=== PATIENT | female | born 1935 | race Caucasian/White ===

== ENCOUNTER 2019-03-07 12:08 | Inpatient (IN) ==
[2019-03-07] MEDS ORDERED: NS 1,000 ML IV ONE ×2 (12:43→15:39)
[2019-03-07 13:22] LABS: BASO# 0.03 X1000 (0.0-0.2); BASO% 0.3 % (0.0-0.8); EOS# 0.17 X1000 (0.0-0.7); EOS% 1.5 % (0.0-10.0); HEMATOCRIT 43.9 % (37.0-47.0); HEMOGLOBIN 14.3 g/dL (12.0-16.0); IMM GRAN# 0.02 X1000 (0.0-0.04); IMM GRAN% 0.2 % (0.0-0.5); LYMPH# 1.19 X1000 (1.2-3.4); LYMPH% 10.6 % (20.5-51.1); MCH 29.6 PG (27-31); MCHC 32.6 g/dL (33-37); MCV 90.9 FL (81-99); MONO# 0.98 X1000 (0.11-0.59); MONO% 8.8 % (1.7-9.3); NEUT# 8.79 X1000 (1.4-6.5); NEUT% 78.6 % (42.2-75.2); PLT 327 X1000 (130-400); RBC 4.83 XMIL (4.2-5.4); RDW 15.3 % (11.5-14.5); WBC 11.18 X1000 (4.8-10.8)
[2019-03-07 13:23] LABS: AGAP 10; ALB/GLOB RATIO 1.1; ALBUMIN 3.5 g/dL (3.5-5.0); ALKALINE PHOSPHATASE 92 U/L (32-104); BUN 13 mg/dL (8-22); CALCIUM 9.4 mg/dL (8.8-10.2); CHLORIDE 97 mmol/L (98-107); COSMO 273; CREATININE 0.5 mg/dL (0.5-0.9); ESTIMATED GFR > 60; GLUCOSE 113 mg/dL (70-104); GOT 22 U/L (10-30); GPT 19 U/L (10-36); MAGNESIUM 2.1 mg/dL (1.5-2.7); POTASSIUM 4.3 mmol/L (3.5-5.1); SODIUM 136 mmol/L (136-145); TCO2 29 mmol/L (25-35); TOTAL BILIRUBIN 0.42 mg/dL (0.20-1.00); TOTAL PROTEIN 6.6 g/dL (6.3-8.3)
[2019-03-07 13:42] LABS: BILIRUBIN URINE NEGATIVE (NEGATIVE); BLOOD URINE NEGATIVE (NEGATIVE); COLOR YELLOW; GLUCOSE URINE NEGATIVE (NEGATIVE); KETONE URINE NEGATIVE (NEGATIVE); LEUKOCYTES URINE NEGATIVE (NEGATIVE); NITRITE URINE NEGATIVE (NEGATIVE); PH URINE 6.5; PROTEIN URINE NEGATIVE (NEGATIVE); TURBIDITY URINE CLEAR (CLEAR); URINE SOURCE CATH; UROBILINOGEN URINE NORMAL (NORMAL)
[2019-03-07 13:44] LABS: UR EPITHELIAL CELLS >10 /HPF (<10); URINE BACTERIA NEGATIVE /HPF; URINE RBC <10 /HPF (<10); URINE WBC <10 /HPF (<10)
--- NOTE | 2019-03-07 14:29 | Diag Imaging Result Doc PS360 ---
EXAM: CT ABD/PELVIS W/IV CONT ONLY 03/07/2019 HISTORY: abd pain TECHNIQUE: This exam was performed using automated exposure control, adjustment of mA or kV according to patient size, and/or use of iterative reconstruction technique. COMMENT: There are no previous studies available for comparison. There is some atelectasis or fibrosis particularly in the left posterior costophrenic sulcus. There is fluid in the distal esophagus and there is a fairly large hiatal hernia. The aorta is not distended. There are calcifications in the aorta. There are granulomata in the spleen. The adrenal glands and pancreas are within normal limits. There are no apparent gallstones. There is stool throughout the colon. The liver is unremarkable. There is no evidence of significant adenopathy. The kidneys are without evidence of hydronephrosis or mass. Pelvis: There is a large amount of stool in the rectum. There is presacral edema. The possibility of mild stercoral proctitis cannot be excluded. The urinary bladder is not distended. There are two ovarian cysts one of which measures up to 3.8 cm in size. There is a bone island in the left ischium. There are degenerative disc and facet changes in the lumbar spine. There has been kyphoplasty at T10. IMPRESSION: Constipation. Bibasilar atelectasis. Hiatal hernia. Probable reflux. Left ovarian cyst. Fecal impaction and mild proctitis. Electronically signed by Bharath Soto 03/07/2019 2:27 PM
--- NOTE | 2019-03-07 15:12 | PROVIDER DOCUMENTATION ---
This chart was entered by Mily Aly Scribe, acting as scribe for Jose Mc CRNP. HPI-Abdominal Pain/GI Problem - General Chief Complaint: GI Bleed Stated Complaint: GI BLEED Time Seen by Provider: 03/07/19 12:25 Source: patient, EMS, other (home caregiver) Allergies/Adverse Reactions: Patient Allergies Allergy/AdvReac Type Severity Reaction Status Date / Time Penicillins AdvReac Unknown Verified 02/13/19 22:23 Home Medications: Home Medication List Medication Instructions Recorded Confirmed Last Taken Type Multivitamins/Minerals [Centrum 1 each PO QAM 03/08/16 03/07/19 03/08/16 20:00 History Silver] Duloxetine [Cymbalta] 20 mg PO BID 09/18/18 03/07/19 Unknown History Levothyroxine Sodium 50 mcg PO QPM 09/18/18 03/07/19 Unknown History ATORVAstatin [Lipitor] 40 mg PO QPM 02/13/19 03/07/19 Unknown History Amlodipine Besylate 1 tab PO QPM 02/13/19 03/07/19 Unknown History Baclofen 1 tab PO BID 02/13/19 03/07/19 Unknown History Carvedilol [Coreg] 1 tab PO BID 02/13/19 03/07/19 Unknown History Docusate Sodium [Colace] 1 cap PO BID 02/13/19 03/07/19 Unknown History Gabapentin 1 cap PO TID 02/13/19 03/07/19 Unknown History LISINOpril [Prinivil] 5 mg PO QAM 02/13/19 03/07/19 Unknown History Levocetirizine Dihydrochloride 1 tab PO QHS 02/13/19 03/07/19 Unknown History Methocarbamol 1 tab PO BID 02/13/19 03/07/19 Unknown History Omeprazole 1 cap PO QAM 02/13/19 03/07/19 Unknown History Ranitidine [Zantac] 1 tab PO DAILY 02/13/19 03/07/19 Unknown History Tramadol [Ultram] 25 mg PO 4XDAY 02/13/19 03/07/19 Unknown History Apixaban [Eliquis] 2.5 mg PO BID #60 tab 02/16/19 03/07/19 Unknown Rx Aspirin EC 81 mg PO DAILY #30 tab 02/16/19 03/07/19 Unknown Rx Magnesium Oxide [Uro-Mag] 1 cap PO DAILY 03/07/19 03/07/19 Unknown History - History of Present Illness-ABD Nature of Presenting Problems: 83 y/o female presents to the ED via EMS with rectal pain and rectal bleeding. EMS states the caregiver called them due to rectal bleeding noted after enema. The patient is confused but does complaint of rectal pain and gives a history of stroke and there is obvious right-sided paresthesias. Abdominal Pain Onset Location: reports: other (anal) Onset/Duration: reports: 1 hour ago Timing: reports: still present Activities at Onset: reports: light activity Modifying Factors: improves with: nothing Associated Symptoms: reports: constipation, other Dark Stools Present?: reports: bright red blood Rectal Bleeding: reports: bleeding without stool Rectal Pain: reports: other (unknown cause) Emesis Description: reports: none Similar Symptoms Previously?: No Recently seen or treated by another doctor?: No Review of Systems - Adult - REVIEW OF SYSTEMS - ADULT Constitutional: denies: chills, fever, weight gain, weight loss Eyes: reports: no symptoms reported Ears, Nose, Mouth & Throat: reports: no symptoms reported Cardiovascular: reports: no symptoms reported Respiratory: reports: no symptoms reported Gastrointestinal: reports: constipation, rectal bleeding, other (rectal pain). denies: vomiting Genitourinary: denies: dysuria, discharge, hematuria Musculoskeletal: reports: no symptoms reported Integumentary: reports: no symptoms reported Neurological: reports: no symptoms reported Psychiatric: reports: no symptoms reported Endocrine: reports: no symptoms reported Hematologic/Lymphatic: reports: no symptoms reported Allergic/Immunologic: reports: no symptoms reported All Other Systems: Reviewed and Negative Past History - Adult - PAST MEDICAL HISTORY-ADULT Review of Records: reports: Old Records Reviewed, Nursing Assessment Review, Medications Reviewed Major Childhood Illnesses: reports: denies history Cardiovascular: reports: blood clots Respiratory: reports: denies history Gastrointestinal: reports: denies history Obstetrical/Gynecological: reports: denies history Genitourinary: reports: denies history Musculoskeletal: reports: arthritis Neurological: reports: denies history Endocrine/Immune: reports: denies history Other Conditions: reports: denies history - PRIOR SURGERIES/PROCEDURES Surgical/Procedure History: reports: hysterectomy, orthopedic (extremity), breast - IMMUNIZATION STATUS Childhood Immunizations: UTD Flu Vaccine: UTD - FAMILY HISTORY Family History: reviewed, not pertinent - SOCIAL HISTORY Smoking: non-smoker Substance Use: none/never Living Situation: other (home w/caregivers) Physical Exam-General - PHYSICAL EXAM-ADULT Initial Vital Signs Reviewed: Yes - CONSTITUTIONAL General Appearance: alert - HEAD, EARS, NOSE, MOUTH & THROAT HENMT: normocephalic/atraumatic - NECK Neck: full range of motion, supple - RESPIRATORY Respiratory: lungs clear. negative: rales, rhonchi, wheezing - CARDIOVASCULAR Cardiovascular: regular rate, rhythm, no gallop, no murmur - GASTROINTESTINAL (ABDOMEN) Abdominal Exam: non tender, soft. negative: guarding, rebound - GENITOURINARY Rectal Exam: other (bleeding present, impacted) - MUSCULOSKELETAL Extremity: other (right sided paresthesias RUE and RLE due to previous stroke). negative: tenderness - SKIN Integumentary: normal color, warm/dry. negative: diaphoresis - NEUROLOGIC Neurologic: other (right sided paresthesias due to previous stroke) - PSYCHIATRIC Psych/Mental Status: other (mildly confused) Progress - PLAN OF CARE/RESULTS Progress/Plan/Lab Results: According to the patient's caregiver the patient has also had a cough for approximately two weeks. Hemocult was also found to be positive. Will consult hospitalist for admission. Result Diagrams: 03/07/19 12:37 03/07/19 12:37 - CT/MRI 1 CT Study: Abdomen, Pelvis Impression: See EMR Report (EXAM: CT ABD/PELVIS W/IV CONT ONLY 03/07/2019 HISTORY: abd pain TECHNIQUE: This exam was performed using automated exposure control, adjustment of mA or kV according to patient size, and/or use of iterative reconstruction technique. COMMENT: There are no previous studies available for comparison. There is some atelectasis or fibrosis particularly in the left posterior costophrenic sulcus. There is fluid in the distal esophagus and there is a fairly large hiatal hernia. The aorta is not distended. There are calcifications in the aorta. There are granulomata in the spleen. The adrenal glands and pancreas are within normal limits. There are no apparent gallstones. There is stool throughout the colon. The liver is unremarkable. There is no evidence of significant adenopathy. The kidneys are without evidence of hydronephrosis or mass. Pelvis: There is a large amount of stool in the rectum. There is presacral edema. The possibility of mild stercoral proctitis cannot be excluded. The urinary bladder is not distended. There are two ovarian cysts one of which measures up to 3.8 cm in size. There is a bone island in the left ischium. There are degenerative disc and facet changes in the lumbar spine. There has been kyphoplasty at T10. IMPRESSION: Constipation. Bibasilar atelectasis. Hiatal hernia. Probable reflux. Left ovarian cyst. Fecal impaction and mild proctitis. Electronically signed by Bharath Soto 03/07/2019 2:27 PM) - CONSULTS/PCP/HOSPITALIST Notification #1 *Consult/PCP/Hospitalist*: P[facility]an Hospitalist Time Discussed: 14:30 Reason/Comments: possible pneumonia, proctitis, fecal impaction Consult Disposition: Admit (to [facility]) Departure - Departure Date of Disposition Decision: 03/07/19 Time of Disposition Decision: 14:38 DIAGNOSIS: Fecal impaction Pneumonia Qualifiers: Pneumonia type: due to unspecified organism Laterality: unspecified laterality Lung location: unspecified part of lung Qualified Code(s): J18.9 - Pneumonia, unspecified organism Disposition: ADMITTED INPATIENT 09 Certified Medical Emergency: Emergent Condition: Stable Additional Freetext Instructions: ED Follow Up Instructions: You have been treated by a care provider in the Emergency Department. These instructions are being provided to you so you can have an understanding of how to care for yourself upon discharge. Upon discharge from the Emergency Department, you are responsible for making arrangements for follow-up care by a physician of your choice. Take all prescribed medications as directed. Return to the Emergency Department immediately for any new or worsening symptoms. You may call the Physician Referral phone number at [phone] to obtain a list of Physicians who are taking new patients. Referrals and Follow-Ups: Jomar Canela MD [Primary Care Provider] - - Critical Care Note This patient required my direct & personal management of CC.: No Attestation - Physician/ MARIO Attestation Patient care was provided by Advanced Practice Provider:: Yes Advanced Practice Provider:: Jose Mc Advanced Practice Provider documentation review:: The Mid-level provider documentation, treatment plan and medical decision making was reviewed by the physician who agrees with all treatment and medical decision making by the MLP. The physician spent face to face time with patient:: No Advanced Practice Provider documentation review:: Supervising physician onsite and consulted in the evaluation and care of this patient. The physician did not have a face to face encounter with the patient. This chart was documented by the indicated scribe, (Mily Aly, Shruthi) and accurately reflects the services I performed and decisions made by , Jose Mc CRNP, as attested by the provider's signature.
[2019-03-07] MEDS ORDERED: DUONEB (A & A) INH PRN (15:35)
[2019-03-07] MEDS ORDERED: FLEET MINERAL OIL ENEMA PR ONE (15:39)
--- NOTE | 2019-03-07 16:08 | Diag Imaging Result Doc PS360 ---
EXAM: CHEST-PORTABLE 03/07/2019 HISTORY: cough, yellow sputum production TECHNIQUE: AP portable at 1542 COMMENT: There are patchy ill-defined opacities present bilaterally particularly in the right upper lobe. This was not present on 09/18/2018. The left ventricle is enlarged. The inspiration is somewhat suboptimal. IMPRESSION: Bronchopneumonia. Cardiomegaly. Electronically signed by Bharath Soto 03/07/2019 4:06 PM
[2019-03-07 16:10] LABS: INR 1.04; PROTIME 14.4 Seconds (11.0-16.0)
--- NOTE | 2019-03-07 16:48 | HISTORY AND PHYSICAL ---
PRIMARY CARE PHYSICIAN: Dr. Jomar Canela CHIEF COMPLAINT: Rectal bleeding. HISTORY OF PRESENT ILLNESS: Ms. Bowman is an 83-year-old female with a history of cerebrovascular accident with right-sided hemiparesis. She also has a history of coronary disease, status post stenting on anticoagulant therapy. She was actually discharged from our service around 10 days ago for transient ischemic attack. She comes in today in the company of her certified marine mechanic with complaints of rectal bleeding. She has had constipation for the better part of this week and only to pass small amounts of stool and also having difficulty with straining. Today, she was trying to have a bowel movement; and there was a stream of dark blood noted into the toilet. At that time the certified marine mechanic felt the patient should come to the ER. She has also had a cough with yellow-green sputum production and a low-grade temperature. She denies any chest pain, no abdominal pain or distention. Given the above, we are going to admit her for observation status. PAST MEDICAL HISTORY: 1. Recent admission for TIA. 2. History of CVA and right-sided hemiplegia. 3. CAD, status post coronary stenting. 4. Hypertension. 5. Hyperlipidemia. 6. Hypothyroidism. 7. Anxiety and depression. 8. GERD. SURGICAL HISTORY: Kyphoplasty, right foot surgery, breast biopsy, hysterectomy, tonsillectomy, appendectomy. SOCIAL HISTORY: No tobacco, alcohol or drug use. She lives at home with home health and 24-hour nursing manager. FAMILY HISTORY: Significant for cardiovascular disease. REVIEW OF SYSTEMS: A 14-point review of systems was obtained and found to be negative with the exception of the HPI. ALLERGIES: Penicillin. HOME MEDICATIONS: Norvasc 5 mg daily; Baclofen 10 mg b.i.d.; multivitamin 1 a.m.; Colace 100 mg b.i.d.; Coreg 6.25 mg p.o. b.i.d.; Cymbalta 20 mg b.i.d.; Neurontin 100 mg p.o. t.i.d.; Levothyroxine 50 mcg q p.m.; Lipitor 40 mg p.o. q p.m.; methocarbamol 500 mg p.o. b.i.d.; omeprazole 40 mg a.m.; lisinopril 5 mg a.m.; Ultram 25 mg p.o. 4 times a day; Mag-Ox 84.5 mg p.o. daily; Zantac 150 mg p.o. daily; aspirin 81 mg daily; Eliquis 2.5 mg p.o. b.i.d. PHYSICAL EXAMINATION: VITAL SIGNS: Blood pressure 158/82; heart rate 89; respiratory rate 20; 02 sat 95% on room air; temperature 98.6. GENERAL: An elderly female lying in the hospital bed in no acute distress. NEUROLOGICAL: She is awake, somewhat lethargic. She has right-sided hemiplegia. Follows commands with the left side and is oriented. HEENT: Head is atraumatic and normocephalic. Her pupils are equal, round and reactive to light. Oral mucosa is slightly dry. NECK: Trachea midline. CHEST: Clear to auscultation, diminished at the bases. CARDIOVASCULAR: Regular rate and rhythm. S1 and S2 are noted. No appreciable murmurs. GASTROINTESTINAL: Soft and nondistended. Bowel sounds are hypoactive. EXTREMITIES: Trace edema in the right leg; no edema in the left leg. Pulses 1+ bilaterally. DIAGNOSTIC DATA: Abdomen and pelvis CT constipation, bibasilar atelectasis, hiatal hernia, probable reflux, left ovarian cyst, fecal impaction and mild proctitis. WBC 11.18, hemoglobin 14.3, hematocrit 43.9, platelet count 327,000, sodium 136, potassium 4.3, chloride 97, C02 29, anion gap 10, BUN 13, creatinine 0.5, glucose 113, calcium 9.4, magnesium 2.1. LFTs negative. Albumin 3.5. UA is negative. ASSESSMENT AND PLAN: 1. GI bleed: Likely secondary to stercoral colitis. No drop in white count. Will lightly hydrate, hold Eliquis, continue low-dose aspirin only. If there is any increased bleeding, will stop the aspirin as well. We have ordered light IV fluid hydration. 2. Severe fecal impaction: We have ordered mineral oil enema, IV fluids and will continue the Colace and add MiraLAX b.i.d. If there is no success with those medications, we can increase to something such as GoLYTELY or consult GI for possible aggressive therapy with colonoscopy. 3. Bronchitis versus pneumonia: She does not have significant elevation of white count. There are infiltrates in the base on CT, but there is no chest x-ray, we will go ahead and order that. Will also order blood cultures, start azithromycin, Rocephin. 4. History of stroke: Stable. Will consult physical therapy and social work. Continue home meds. 5. CAD: The patient denies chest pain. Will continue home meds except for Eliquis. 6. Hypothyroidism: Stable. Continue home meds. 7. GERD: Stable. Continue home meds. 8 DVT prophylaxis with SCDs. Further recommendations to follow. Dictated by MICKY Cotto for Sky Jay MD cc: MICKY Cotto MD I have seen and examined Ms Bowman today. I have also reviewed her labs and imagine studies. Ms Bowman has severe constipation with impaction. I agree with the above HPI and the plan reflects my opinion discussed with the HEARTH FEEDER. MARCIAL
[2019-03-07] MEDS: ROCEPHIN 1 GM in NS 50 ML IV SCH (16:50)
[2019-03-07] MEDS ORDERED: NEURONTIN PO SCH (17:00)
[2019-03-07] MEDS: ULTRAM PO SCH ×2 (18:27→20:39)
[2019-03-07] MEDS ORDERED: CALMOSEPTINE OINTMENT TOP PRN (18:58)
[2019-03-07] MEDS: DUONEB (A & A) INH SCH ×2 (20:20→23:10)
[2019-03-07] MEDS: COLACE PO SCH (20:39)
[2019-03-07] MEDS: ZYRTEC PO SCH (20:39)
[2019-03-07] MEDS: COREG PO SCH (20:39)
[2019-03-07] MEDS: LIORESAL PO SCH (20:39)
[2019-03-07] MEDS: LIPITOR PO SCH (20:39)
[2019-03-07] MEDS: ROBAXIN PO SCH (20:39)
[2019-03-07] MEDS: CYMBALTA PO SCH (20:40)
[2019-03-07] MEDS: NORVASC PO SCH (20:40)
[2019-03-07] MEDS: SYNTHROID PO SCH (20:40)
[2019-03-08] MEDS: DUONEB (A & A) INH SCH ×6 (03:47→22:25)
[2019-03-08] MEDS: PRILOSEC PO SCH (06:26)
[2019-03-08 07:30] LABS: HEMATOCRIT 36.7 % (37.0-47.0); HEMOGLOBIN 11.6 g/dL (12.0-16.0); MCH 29.8 PG (27-31); MCHC 31.6 g/dL (33-37); MCV 94.3 FL (81-99); MPV 10.4 FL (7.4-10.4); RBC 3.89 XMIL (4.2-5.4); RDW 15.3 % (11.5-14.5); WBC 6.21 X1000 (4.8-10.8)
[2019-03-08 07:42] LABS: AGAP 7; BUN 10 mg/dL (8-22); CALCIUM 8.8 mg/dL (8.8-10.2); CHLORIDE 103 mmol/L (98-107); COSMO 277; CREATININE 0.5 mg/dL (0.5-0.9); ESTIMATED GFR > 60; GLUCOSE 97 mg/dL (70-104); MAGNESIUM 2.1 mg/dL (1.5-2.7); POTASSIUM 3.8 mmol/L (3.5-5.1); SODIUM 139 mmol/L (136-145); TCO2 29 mmol/L (25-35)
[2019-03-08] MEDS: ASPIRIN EC PO SCH (09:36)
[2019-03-08] MEDS: COREG PO SCH ×2 (09:36→20:00)
[2019-03-08] MEDS: CENTRUM SILVER PO SCH (09:36)
[2019-03-08] MEDS: LIORESAL PO SCH ×2 (09:36→20:00)
[2019-03-08] MEDS: ROBAXIN PO SCH ×2 (09:36→19:59)
[2019-03-08] MEDS: ULTRAM PO SCH ×4 (09:36→19:59)
[2019-03-08] MEDS: COLACE PO SCH ×2 (09:36→19:59)
[2019-03-08] MEDS: PRINIVIL PO SCH (09:38)
[2019-03-08] MEDS: CYMBALTA PO SCH ×2 (09:38→21:36)
[2019-03-08] MEDS: ZANTAC PO SCH ×2 (09:38→13:36)
[2019-03-08] MEDS: NEURONTIN PO SCH ×3 (09:38→19:59)
[2019-03-08] MEDS: LACTULOSE PO SCH ×2 (11:34→20:00)
[2019-03-08] MEDS: MIRALAX PO SCH (11:35)
[2019-03-08] MEDS: PATIENT'S OWN MED PO SCH (13:03)
--- NOTE | 2019-03-08 13:19 | PROGRESS NOTE ---
DATE: 03/08/2019 SUBJECTIVE: This morning, Ms. Bowman refers to be doing a whole lot better. She has not had any bowel movement since today. I think there was one yesterday. She denies any abdominal pain. OBJECTIVE: Vital Signs: Blood pressure is 139/71, pulse of 79, respirations are 19, temperature is 97.9 degrees, the patient is saturating 98% on room air. General Examination: Ms. Bowman is an 83-year-old, elderly, female. She is in bed. No distress. HEENT: Mucosa is pink and moist. Anicteric. Acyanotic. Neck: Supple. Chest: Good air entry bilaterally. There were no crepitations. No rhonchi. Cardiovascular: Regular rate and rhythm. No murmurs, no rubs, no gallops. TELEGRAPHIC TYPEWRITER OPERATOR: The patient is awake, alert, oriented. She still has a right-sided hemiplegia. Laboratory Data: Has been reviewed. CBC is unremarkable. Chemistry is completely normal. So far, blood cultures have been unremarkable. ASSESSMENT: 1. Severe fecal impaction. The patient is currently on a bowel prep. 2. Mild gastrointestinal bleed, likely secondary to stercoral colitis. 3. Bronchopneumonia. The patient is on antibiotics. 4. History of cerebrovascular accident with right-sided hemiplegia. 5. History of coronary artery disease, currently asymptomatic. 6. Hypothyroidism. cc: Sky Jay MD
[2019-03-08] MEDS: ROCEPHIN 1 GM in NS 50 ML IV SCH (16:07)
[2019-03-08] MEDS: SYNTHROID PO SCH (19:59)
[2019-03-08] MEDS: ZYRTEC PO SCH (19:59)
[2019-03-08] MEDS: LIPITOR PO SCH (19:59)
[2019-03-08] MEDS: NORVASC PO SCH (19:59)
[2019-03-09] MEDS: DUONEB (A & A) INH SCH ×6 (03:45→23:10)
[2019-03-09] MEDS: PRILOSEC PO SCH (06:25)
[2019-03-09 07:18] LABS: HEMATOCRIT 39.7 % (37.0-47.0); HEMOGLOBIN 12.6 g/dL (12.0-16.0); MCH 29.8 PG (27-31); MCHC 31.7 g/dL (33-37); MCV 93.9 FL (81-99); MPV 10.6 FL (7.4-10.4); RBC 4.23 XMIL (4.2-5.4); RDW 15.1 % (11.5-14.5); WBC 7.39 X1000 (4.8-10.8)
[2019-03-09 07:49] LABS: AGAP 8; BUN 7 mg/dL (8-22); CALCIUM 9.1 mg/dL (8.8-10.2); CHLORIDE 104 mmol/L (98-107); COSMO 281; CREATININE 0.5 mg/dL (0.5-0.9); ESTIMATED GFR > 60; GLUCOSE 95 mg/dL (70-104); MAGNESIUM 2.1 mg/dL (1.5-2.7); POTASSIUM 4.2 mmol/L (3.5-5.1); SODIUM 142 mmol/L (136-145); TCO2 30 mmol/L (25-35)
[2019-03-09] MEDS: ULTRAM PO SCH ×4 (08:37→21:23)
[2019-03-09] MEDS: NEURONTIN PO SCH ×3 (08:38→21:22)
[2019-03-09] MEDS: CENTRUM SILVER PO SCH (08:38)
[2019-03-09] MEDS: ROBAXIN PO SCH ×2 (08:38→21:22)
[2019-03-09] MEDS: LACTULOSE PO SCH ×2 (08:39→21:23)
[2019-03-09] MEDS: LIORESAL PO SCH ×2 (08:39→22:15)
[2019-03-09] MEDS: COLACE PO SCH ×2 (08:39→21:22)
[2019-03-09] MEDS: ASPIRIN EC PO SCH (08:39)
[2019-03-09] MEDS: PRINIVIL PO SCH (08:39)
--- NOTE | 2019-03-09 08:40 | EKG Report ---
Test Performed on : 03/07/2019 12:47:44 PM Test Reason : ED. NO EKG ORDER FOR MUSE Blood Pressure : / mmHG Vent. Rate : 092 BPM Atrial Rate : 092 BPM P-R Int : 172 ms QRS Dur : 080 ms QT Int : 352 ms P-R-T Axes : 043 -35 029 degrees QTc Int : 435 ms Normal sinus rhythm. Left axis deviation Abnormal ECG When compared with ECG of 13-FEB-2019 21:33, (Unconfirmed) No significant change was found Unconfirmed Result
[2019-03-09] MEDS: MIRALAX PO SCH (08:44)
[2019-03-09] MEDS: CYMBALTA PO SCH ×2 (08:45→22:15)
[2019-03-09] MEDS: COREG PO SCH ×2 (08:46→21:23)
--- NOTE | 2019-03-09 09:54 | Diag Imaging Result Doc PS360 ---
EXAM: KUB ABDOMEN HISTORY: SBO TECHNIQUE: Portable abdomen two views COMPARISON: None. FINDINGS: Prominent stool throughout the colon. The bowel loops are not dilated. No organomegaly. Moderate scoliosis. IMPRESSION: Severe constipation. Electronically signed by Bassam Yee 03/09/2019 9:52 AM
[2019-03-09] MEDS ORDERED: GOLYTELY PO ONE (10:15)
[2019-03-09] MEDS: NS 1,000 ML IV SCH (12:09)
[2019-03-09] MEDS: ZANTAC PO SCH (13:06)
[2019-03-09] MEDS ORDERED: GLYCERIN ADULT PR ONE (13:29)
[2019-03-09] MEDS: PATIENT'S OWN MED PO SCH ×2 (14:16→19:12)
--- NOTE | 2019-03-09 14:48 | PROGRESS NOTE ---
DATE: 03/09/2019 SUBJECTIVE: This morning Ms. Bowman was seen in her hospital bed. There was no family member at the bedside and there was no sitter from her home care agency. Ms. Bowman, however, refers to be doing a lot better. She says she is still waiting to have a good bowel movement which has not happened. She did complain of some mild abdominal discomfort. OBJECTIVE: Vital Signs: Blood pressure is 132/65, pulse of 79, respirations 13, temperature 98.9. Patient was saturating 98% on room air. General: Ms. Bowman is an 83-year-old female. She is in bed. She did not look any in any distress. HEENT: Mucosa was pink, slightly dry. Anicteric and acyanotic. Neck: Supple. Respiratory: There is good air entry bilaterally. There were no crepitations or rhonchi. No accessory muscle use. Cardiovascular: Regular rate and rhythm. No murmurs, no rubs, no gallops. Gastrointestinal: Abdomen: Was soft, is distended. Bowel sounds were present, but hypoactive. Central Nervous System: Patient was awake, alert, follows commands. Has a residual right-side hemiplegia. LABORATORY DATA: Has been reviewed. CBC is completely normal. Chemistry is also reviewed, which is completely normal. IMAGING STUDIES: A KUB this morning continues to show severe constipation, but the loops were not dilated. ASSESSMENT: 1. Severe constipation with fecal impaction. We will continue with bowel regimen. I have started her on GoLYTELY this morning and we have gotten GI to see her today. 2. Mild GI bleed secondary to stercoral colitis. H H is stable. Patient has not had any more rectal bleed. 3. Bronchopneumonia. Will continue her with current antibiotics. 4. History of CVA with right-sided hemiplegia. 5. History of coronary artery disease, currently asymptomatic. 6. Hypothyroidism. We will check the TSH levels to make sure that is not contributing in any way to her constipation. She is currently on levothyroxine supplementation. PLAN: In general I think Ms Bowman is clinically stable. Seems to be making some progress. She still has not had a bowel movement yet. We have started her on GoLYTELY this morning. We have consulted GI. I have discussed the case with Dr. Dr. Lazarof. He is also recommending a glycerine suppository in addition. Will follow up with further recommendations from GI. DISPOSITION: Going to depend on the rest of the hospital course. I anticipate that the next 24 to 48 hours if Ms. Bowman has had a good bowel movement, we will potentially be able to discharge her. cc: Syk Jay MD MTDD
[2019-03-09] MEDS: ROCEPHIN 1 GM in NS 50 ML IV SCH (15:45)
[2019-03-09] MEDS: NORVASC PO SCH (21:22)
[2019-03-09] MEDS: SYNTHROID PO SCH (21:23)
[2019-03-09] MEDS: LIPITOR PO SCH (21:23)
[2019-03-09] MEDS: ZYRTEC PO SCH (21:23)
[2019-03-10] MEDS: DUONEB (A & A) INH SCH ×6 (03:30→23:00)
[2019-03-10] MEDS: NS 1,000 ML IV SCH (06:16)
[2019-03-10] MEDS: PRILOSEC PO SCH (06:38)
[2019-03-10 08:11] LABS: AGAP 11; BUN 3 mg/dL (8-22); CALCIUM 8.7 mg/dL (8.8-10.2); CHLORIDE 99 mmol/L (98-107); COSMO 275; CREATININE 0.4 mg/dL (0.5-0.9); ESTIMATED GFR > 60; GLUCOSE 107 mg/dL (70-104); MAGNESIUM 2.1 mg/dL (1.5-2.7); POTASSIUM 3.8 mmol/L (3.5-5.1); SODIUM 139 mmol/L (136-145); TCO2 29 mmol/L (25-35)
[2019-03-10] MEDS: COLACE PO SCH ×2 (09:43→20:41)
[2019-03-10] MEDS: CYMBALTA PO SCH ×2 (09:43→20:40)
[2019-03-10] MEDS: NEURONTIN PO SCH ×3 (09:43→20:41)
[2019-03-10] MEDS: PRINIVIL PO SCH (09:44)
[2019-03-10] MEDS: ULTRAM PO SCH ×4 (09:44→20:40)
[2019-03-10] MEDS: ROBAXIN PO SCH ×2 (09:44→20:41)
[2019-03-10] MEDS: COREG PO SCH ×2 (09:44→20:41)
[2019-03-10] MEDS: MIRALAX PO SCH (09:45)
[2019-03-10] MEDS: CENTRUM SILVER PO SCH (09:45)
[2019-03-10] MEDS: LIORESAL PO SCH ×2 (09:45→20:41)
[2019-03-10] MEDS: ASPIRIN EC PO SCH (09:45)
[2019-03-10] MEDS: LACTULOSE PO SCH ×2 (11:34→20:40)
[2019-03-10] MEDS ORDERED: TYLENOL PO PRN (13:20)
[2019-03-10] MEDS: ROCEPHIN 1 GM in NS 50 ML IV SCH (14:47)
[2019-03-10] MEDS: ZANTAC PO SCH (14:48)
[2019-03-10] MEDS: PATIENT'S OWN MED PO SCH (14:49)
--- NOTE | 2019-03-10 17:47 | PROGRESS NOTE ---
DATE: 03/10/2019 Ms. Bowman was put in 03/07/2019. She is a patient of Dr. Jomar Canela, 83-year-old female with a history of cerebrovascular accident, right-sided hemiparesis. She has a history of coronary disease status post stenting on anticoagulant therapy. She was discharged from our service about 10 days prior to this admission for transient ischemic attack. She came in on 03/07/2019 with a certified nurse assistant finance manager complains of rectal bleeding. She has had constipation for better part of this week and only passed a small amount of stool, having difficulty straining trying to have a bowel movement. There was a stream of dark blood noted in the toilet 1 time and the nurse called, came to the emergency room. She is also complaining of greenish yellow sputum production, low-grade fever with again. PAST MEDICAL HISTORY: 1. Recent admission for TIA. 2. History of CVA with right-sided hemiplegia. 3. Coronary artery disease. 4. Hypertension. 5. Hyperlipidemia. 6. Hypothyroidism. 7. Anxiety and depression. 8. Gastroesophageal reflux disease. SURGICAL HISTORY: Kyphoplasty, right foot surgery, breast biopsy, hysterectomy, tonsillectomy and appendectomy. 1. Admitted with questionable GI bleed and likely stercoral colitis and held the Eliquis. Continue low-dose aspirin. She has had some bowel movements and feels better. 2. Severe fecal impaction so she was given some Colyte and this seemed to work. 3. Bronchitis versus pneumonia. There was no significant elevation of white count. There are infiltrates seen on the bases of the lungs on CT scan but there is no infiltrate seen on chest x-ray. 4. History of stroke, transient ischemic attack last admission. 5. Coronary artery disease. No chest pain or palpitations. Continue all her same medications except hold Eliquis . 6. Hypothyroidism. 7. Gastroesophageal reflux disease aware. She is feeling better. 8. Review of her orders, I do not see any change at this time. cc: Sumit Rockwell MD
[2019-03-10] MEDS: NORVASC PO SCH (20:40)
[2019-03-10] MEDS: LIPITOR PO SCH (20:40)
[2019-03-10] MEDS: ZYRTEC PO SCH (20:41)
[2019-03-10] MEDS: SYNTHROID PO SCH (20:54)
--- NOTE | 2019-03-10 21:26 | GASTROENTEROLOGY CONSULTATION ---
DATE: 03/10/2019 REASON FOR CONSULTATION: Rectal bleeding, severe constipation. HISTORY OF PRESENT ILLNESS: This is an 83-year-old female who was recently in the hospital approximately a week and half ago for transient ischemic attack. The patient came in today with reports of rectal bleeding. She has had a certified pediatric nurse practitioner that stays with her during the day. Her son has been staying with her lately at night. They reported onset of symptoms on Saturday. She was having small bowel movements daily but patient reports that they were only small stools and she was having problems with straining. She had noticed blood in the stool. She had evaluation that showed imaging study significant for prominent stool throughout the colon. Bowel loops are not dilated. Impression was severe constipation. Abdominal pelvis CT scan showed constipation with bibasilar atelectasis, hiatal hernia, probable reflux, left ovarian cyst, fecal impaction and mild proctitis. Patient has had multiple laxatives. Patient reports she has had several bowel movements, she reports having 4 bowel movements during the night and had bowel movement early this morning and states she is feeling better. She has a certified pediatric nurse practitioner at her bedside. PAST MEDICAL HISTORY: 1. Recent admission for transient ischemic attack. 2. History of CVA and right side hemiplegia. 3. Coronary artery disease. History of cardiovascular stent placement. 4. Hypertension. 5. Hyperlipidemia. 6. Hypothyroidism. 7. Anxiety, depression. 8. GERD. PAST SURGICAL HISTORY: Kyphoplasty, right foot surgery, breast biopsy, hysterectomy, tonsillectomy, appendectomy. Patient was last seen in our office in April 2016, last colonoscopy that we have evidence of was from 2008 that showed rectal polyps and diverticulosis. ALLERGIES: Penicillin unknown reaction. HOME MEDICATIONS: Amlodipine 1 tablet with every night, Eliquis 2.5 mg twice a day, aspirin 81 mg daily, Lipitor 40 mg every night, baclofen 1 tablet twice a day, Coreg 1 tablet twice a day, Colace 1 twice a day, Cymbalta 20 mg twice a day, gabapentin one 3 times a day, levocetirizine 1 tablet every night, levothyroxine 50 mcg every night, Prinivil 5 mg daily, magnesium oxide 1 daily, methocarbamol 1 twice daily, Centrum Silver 1 every day, omeprazole 1 daily, Zantac 1 daily, tramadol 25 mg 4 times a day. SOCIAL HISTORY: No reported tobacco or alcohol use. She does live in her own home and has home health and nursing assistance on a daily basis. REVIEW OF SYSTEMS: Per history of present illness. PHYSICAL EXAMINATION: Vital Signs: Temperature 98.2 degrees, pulse 84, respirations 16, blood pressure 154/78. General: Patient is awake and alert. No acute distress. She states she is having bowel movements and her symptoms have improved. HEENT: Normocephalic, atraumatic. Pupils equal, round, reactive to light. Sclerae nonicteric. Cardiovascular: Regular rate and rhythm. Respiratory: Lung sounds essentially clear. Abdomen: Soft, nontender. Positive bowel sounds. DIAGNOSTIC RESULTS: Laboratory, hematology WBC 739, hemoglobin 12.6, hematocrit 39.7, MCV 93.9, platelets 271,000. Chemistry sodium 139, potassium 3.8, chloride 99, CO2 29, BUN 3, creatinine 0.4, glucose 107, calcium 8.7, magnesium 2.1. IMAGING STUDIES: Abdominal pelvis CT scan showed a large amount of stool in the rectum with presacral edema. Possibility of mild stercoral proctitis could not be excluded. Findings also showed bibasilar atelectasis, hiatal hernia, probable reflux and left ovarian cyst with fecal impaction and mild proctitis. Abdominal x-ray on 03/09/2019 showed severe constipation with nondistended bowel loops. ASSESSMENT AND PLAN: 1. Fecal impaction. 2. Severe constipation has improved after multiple laxatives. 3. Bronchitis, bronchiectasis versus pneumonia. Patient is on antibiotics. 4. History of cerebrovascular accident and history of recent transient ischemic attack with recent hospital admission. Continue laxative regimen. Will need to be on laxatives once discharged. Once discharged, she can follow up in the office. Case discussed with Dr. Rodarte. Dictated by MICKY Rm for Rachid Rodarte MD cc: MICKY Suh MD [facility]
[2019-03-11] MEDS: DUONEB (A & A) INH SCH ×3 (03:51→11:42)
[2019-03-11] MEDS: PRILOSEC PO SCH (06:50)
[2019-03-11 07:23] LABS: AGAP 9; BUN 3 mg/dL (8-22); CHLORIDE 102 mmol/L (98-107); COSMO 276; CREATININE 0.4 mg/dL (0.5-0.9); ESTIMATED GFR > 60; GLUCOSE 105 mg/dL (70-104); POTASSIUM 3.9 mmol/L (3.5-5.1); SODIUM 140 mmol/L (136-145); TCO2 29 mmol/L (25-35)
[2019-03-11] MEDS: ULTRAM PO SCH ×3 (08:48→18:15)
[2019-03-11] MEDS: LIORESAL PO SCH (08:50)
[2019-03-11] MEDS: ASPIRIN EC PO SCH (08:50)
[2019-03-11] MEDS: PRINIVIL PO SCH (08:51)
[2019-03-11] MEDS: MIRALAX PO SCH (08:51)
[2019-03-11] MEDS: ROBAXIN PO SCH (08:51)
[2019-03-11] MEDS: COLACE PO SCH (08:51)
[2019-03-11] MEDS: CENTRUM SILVER PO SCH (08:51)
[2019-03-11] MEDS: COREG PO SCH (08:51)
[2019-03-11] MEDS: CYMBALTA PO SCH (08:51)
[2019-03-11] MEDS: NEURONTIN PO SCH ×2 (08:51→15:02)
[2019-03-11] MEDS: LACTULOSE PO SCH (08:52)
[2019-03-11] MEDS: ZANTAC PO SCH (13:36)
[2019-03-11] MEDS: PATIENT'S OWN MED PO SCH (13:41)
--- NOTE | 2019-03-11 14:16 | DISCHARGE SUMMARY ---
ADMISSION DATE: 03/07/2019 DISCHARGE DATE: 03/11/2019 HISTORY OF PRESENT ILLNESS: She presented with questionable rectal bleeding. She is a patient of Dr. Jomar Canela. This is an 83-year-old, female with a history of cerebrovascular accident with partial right-sided hemiparesis, also had a history of coronary artery disease, status post stenting and on anticoagulant therapy. Actually discharged from our service about 10 days before this admission with a transient ischemic attack. She came in on 03/07/2019, complaint by the nurse botany laboratory assistant of rectal bleeding. She has had constipation for the better part of the week and passed small amounts of stool. Also having difficulty with straining. The day of admission, she was trying to have bowel movements and there was a stream of dark blood in the toilet. Certified nurse botany laboratory assistant felt the patient should come to the emergency room. Also had a complaint of cough with yellow-green sputum, low-grade temperature. Denies any chest pain, abdominal pain, or distention. PAST MEDICAL HISTORY: Once again, to review her past medical history: 1. Recent admission for TIA. 2. History of CVA and right-sided hemiplegia. 3. Coronary artery disease, status post coronary stenting. 4. Hypertension. 5. Hyperlipidemia. 6. Hypothyroidism. 7. Anxiety and depression. 8. Gastroesophageal reflux disease. SURGICAL HISTORY: Kyphoplasty, right foot surgery, breast biopsy, hysterectomy, tonsillectomy, and appendectomy. HOSPITAL COURSE: Admitted with questionable GI bleed, with a report of GI bleed. I felt she was a little bit dry and had severe fecal impaction. Given fluids and given a bowel regimen, and had good results. There was question of bronchitis versus pneumonia. I am not sure we had any true pneumonia. She did have bronchial irritation. Then her other comorbidities of history of a stroke, coronary artery disease, hypothyroidism, gastroesophageal reflux disease. She improved with IV fluids and had several large bowel movements. Remained hemodynamically stable. Lab was unremarkable. Hematocrit was stable at 39, hemoglobin at 12. Electrolytes looked good. Creatinine was 0.4. [place] she could go home. She has around the clock sitters at home. DISCHARGE MEDICATIONS: She will be on Norvasc 5 mg q.p.m., aspirin 81 mg a day, Lipitor 40 mg a day, Lioresal 10 mg p.o. b.i.d., Coreg 6.25 mg b.i.d., Zyrtec 10 mg at bedtime, Cymbalta 20 mg b.i.d., Neurontin 100 mg t.i.d., lactulose 30 mL p.o. b.i.d., Synthroid 50 mcg q.p.m., Prinivil 5 mg q.a.m., Robaxin 500 mg b.i.d., Centrum Silver 1 a day, Prilosec 20 mg a day, MiraLAX 17 g daily, Zantac 150 mg daily, and Ultram 25 mg which she takes 4 times a day. I think that is scheduled. FOLLOWUP: She will follow up with Dr. Jomar Canela. cc: Sumit Rockwell MD
[2019-03-11] MEDS: ROCEPHIN 1 GM in NS 50 ML IV SCH (15:34)
[2019-03-11 18:23] VITALS: BP 147/85
--- NOTE | 2019-03-12 15:12 | GASTROENTEROLOGY PROGRESS NOTE ---
DATE: 03/11/2019 [*]symptoms have improved. [*] OBJECTIVE: Vital Signs: Temperature 98.1, pulse 85, respirations 16, blood pressure 111/64. Generally: Patient is awake and alert, no acute distress. LABORATORY: Hematology: WBC 7.39, hemoglobin 12.6, hematocrit 39.7, MCV 93.9. Chemistry: Sodium 140, potassium 3.9, chloride 102, CO2 of 29, BUN 3, creatinine 0.4, glucose 105. ASSESSMENT AND PLAN: 1. Rectal bleeding. 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 Severe fecal impaction. Patient has had laxative regimen and is having bowel movements. 3. Bronchitis versus pneumonia. On medication. 4. History of stroke and recent trans-ischemic attack. 5. Coronary artery disease. Continue current medications. PLAN: Patient is having bowel movements now. Will advance her diet to a GI soft diet as tolerated. Continue current laxative regimen. She will need to be discharged home on a laxative regimen. Will continue to follow during her hospital course. Further plans will be made according to her progress. I have discussed this case with DR. Rodarte. Dictated by MICKY Rm for Rachid Rodarte MD cc: MICKY Suh MD
== END 2019-03-11 18:40 | disposition home health service (06) | DRG 389 ==
LOC: 3N 12:08 → ED 12:08 → SUATTDRO 17:01 → OBSVTOIN 17:01
PROVIDERS: ATTEND Emergency Medicine
CPT/HCPCS: 51701; 71010; 71045; 74000; 74018; 74177; 80048; 80053; 81001; 82270; 82272; 83605; 83735; 84443; 84484; 85025; 85027; 85610; 86850; 86870; 86900; 86901; 87040; 93005; 94640; 94761; 94762; 96361; 96365; 97110; 97162; 97165; 97530; 99285; A9270; J0696; J7030; P9612; Q9967

== ENCOUNTER 2019-12-14 12:26 | Inpatient (IN) ==
--- NOTE | 2019-12-14 13:19 | EKG Report ---
Test Performed on : 12/14/2019 1:02:26 PM Test Reason : CP Blood Pressure : / mmHG Vent. Rate : 065 BPM Atrial Rate : 065 BPM P-R Int : 176 ms QRS Dur : 080 ms QT Int : 408 ms P-R-T Axes : 046 -31 013 degrees QTc Int : 424 ms Normal sinus rhythm. Left axis deviation Minimal voltage criteria for LVH, may be normal variant Possible Anterior infarct , age undetermined Abnormal ECG When compared with ECG of 07-MAR-2019 12:47, Nonspecific T wave abnormality now evident in Anterior leads Unconfirmed Result
--- NOTE | 2019-12-14 13:59 | Diag Imaging Result Doc PS360 ---
CHEST-1 VIEW - 12/14/2019 INDICATION: chest pain COMPARISON: 09/09/2019 FINDINGS: Stable low lung volumes. Stable borderline cardiomegaly. No infiltrates or definite edema. IMPRESSION: Mild cardiomegaly. Electronically signed by Ephraim Meza 12/14/2019 1:56 PM
[2019-12-14 14:26] LABS: BASO# 0.03 X1000 (0.0-0.2); BASO% 0.6 % (0.0-0.8); EOS# 0.21 X1000 (0.0-0.7); HEMATOCRIT 44.8 % (37.0-47.0); HEMOGLOBIN 14.4 g/dL (12.0-16.0); LYMPH# 1.15 X1000 (1.2-3.4); LYMPH% 21.9 % (20.5-51.1); MCH 30.7 PG (27-31); MCHC 32.1 g/dL (33-37); MCV 95.5 FL (81-99); MONO# 0.62 X1000 (0.11-0.59); MONO% 11.8 % (1.7-9.3); NEUT# 3.24 X1000 (1.4-6.5); NEUT% 61.7 % (42.2-75.2); PLT 183 X1000 (130-400); RBC 4.69 XMIL (4.2-5.4); RDW 14.9 % (11.5-14.5); WBC 5.25 X1000 (4.8-10.8)
[2019-12-14] MEDS ORDERED: ASPIRIN PO ONE (14:28)
[2019-12-14 14:31] LABS: INR 1.07
[2019-12-14 14:32] LABS: PTT 32.2 Seconds (22.3-41.8)
[2019-12-14 14:44] LABS: AGAP 9; ALB/GLOB RATIO 1.3; ALBUMIN 3.6 g/dL (3.5-5.0); ALKALINE PHOSPHATASE 94 U/L (32-104); BUN 11 mg/dL (8-22); CHLORIDE 100 mmol/L (98-107); COSMO 272; CREATININE 0.5 mg/dL (0.5-0.9); ESTIMATED GFR > 60; GLUCOSE 84 mg/dL (70-104); GOT 22 U/L (10-30); GPT 20 U/L (10-36); POTASSIUM 4.4 mmol/L (3.5-5.1); SODIUM 137 mmol/L (136-145); TCO2 28 mmol/L (25-35); TOTAL PROTEIN 6.3 g/dL (6.3-8.3)
[2019-12-14 15:34] LABS: CALCIUM 9.1 mg/dL (8.8-10.2); TOTAL BILIRUBIN 0.38 mg/dL (0.20-1.00)
[2019-12-14] MEDS ORDERED: LASIX IV ONE (17:27)
--- NOTE | 2019-12-14 17:35 | PROVIDER DOCUMENTATION ---
This chart was entered by Neyda Nunez Scribe, acting as scribe for Abner Brock MD. HPI-Chest Pain - General Chief Complaint: Chest Pain Stated Complaint: cp Time Seen by Provider: 12/14/19 13:37 Source: patient Allergies/Adverse Reactions: Patient Allergies Allergy/AdvReac Type Severity Reaction Status Date / Time Penicillins AdvReac Unknown Verified 12/14/19 14:25 Home Medications: Home Medication List Medication Instructions Recorded Confirmed Last Taken Type Multivitamins/Minerals [Centrum 1 each PO QAM 03/08/16 09/09/19 03/08/16 20:00 History Silver] Duloxetine [Cymbalta] 20 mg PO BID 09/18/18 09/09/19 Unknown History Levothyroxine Sodium 50 mcg PO QPM 09/18/18 09/09/19 Unknown History ATORVAstatin [Lipitor] 40 mg PO QPM 02/13/19 09/09/19 Unknown History Amlodipine Besylate 1 tab PO QPM 02/13/19 09/09/19 Unknown History Baclofen 1 tab PO BID 02/13/19 09/09/19 Unknown History Carvedilol [Coreg] 1 tab PO BID 02/13/19 09/09/19 Unknown History Docusate Sodium [Colace] 1 cap PO BID 02/13/19 09/09/19 Unknown History Gabapentin 1 cap PO TID 02/13/19 09/09/19 Unknown History LISINOpril [Prinivil] 5 mg PO QAM 02/13/19 09/09/19 Unknown History Levocetirizine Dihydrochloride 1 tab PO QHS 02/13/19 09/09/19 Unknown History Ranitidine [Zantac] 1 tab PO DAILY 02/13/19 09/09/19 Unknown History Tramadol [Ultram] 25 mg PO 4XDAY 02/13/19 09/09/19 Unknown History Apixaban [Eliquis] 2.5 mg PO BID #60 tab 02/16/19 09/09/19 Unknown Rx Aspirin EC 81 mg PO DAILY #30 tab 02/16/19 09/09/19 Unknown Rx Magnesium Oxide [Uro-Mag] 1 cap PO DAILY 03/07/19 09/09/19 Unknown History Esomeprazole Magnesium 40 mg PO QAM 07/12/19 09/09/19 Unknown History Ondansetron Odt [Zofran Odt] 4 mg PO Q6H PRN PRN #15 tab 09/09/19 Unknown Rx - History of Present Illness-CP Nature of Presenting Problem: 84yof presents to ED by EMS cc left side chest pain and generalized discomfort on left side for 1 week. Pt reports since her stroke 1yr ago she lays primarily on left side due to right side deficits. Pt denies SOB/N/V. Pt is in no acute distress upon exam. Location: reports: central (left side) Quality of Pain: reports: aching Severity in ED: mild Onset/Duration: 1 week ago Context/Activities at Onset: reports: light activity Modifying Factors: improves with: nothing Associated Symptoms: reports: denies symptoms Nitro Today/Relief: no nitro taken today Aspirin Treatment Today: no aspirin today Prior Chest Pain/Cardiac Workup: reports: heart attack Similar Symptoms Previously?: Yes Recently Seen Here or By Another Healthcare Provider: No Review of Systems - Adult - REVIEW OF SYSTEMS - ADULT Constitutional: reports: see HPI. denies: chills, fever, fatique Eyes: reports: no symptoms reported Ears, Nose, Mouth & Throat: reports: no symptoms reported Cardiovascular: reports: see HPI, chest pain. denies: palpitations Respiratory: reports: see HPI. denies: shortness of breath Gastrointestinal: reports: see HPI. denies: nausea, vomiting Genitourinary: reports: no symptoms reported Musculoskeletal: reports: no symptoms reported Integumentary: reports: no symptoms reported Neurological: reports: no symptoms reported Psychiatric: reports: no symptoms reported Endocrine: reports: no symptoms reported Hematologic/Lymphatic: reports: no symptoms reported Allergic/Immunologic: reports: no symptoms reported All Other Systems: Reviewed and Negative Past History - Adult - PAST MEDICAL HISTORY-ADULT Review of Records: reports: Old Records Reviewed, Nursing Assessment Review, Medications Reviewed, Social history reviewed & non-contributory. Major Childhood Illnesses: reports: denies history Cardiovascular: reports: blood clots, HTN, [place] Respiratory: reports: denies history Gastrointestinal: reports: denies history Obstetrical/Gynecological: reports: denies history Genitourinary: reports: denies history Musculoskeletal: reports: arthritis, fibromyalgia Neurological: reports: CVA, TIA Endocrine/Immune: reports: thyroid disorder (hypo) Other Conditions: reports: denies history - PRIOR SURGERIES/PROCEDURES Surgical/Procedure History: reports: appendectomy, cardiac stent, hysterectomy, tonsillectomy, orthopedic (extremity) (foot), breast, back/neck - IMMUNIZATION STATUS Childhood Immunizations: UTD Flu Vaccine: UTD - FAMILY HISTORY Family History: reviewed, not pertinent Physical Exam-General - PHYSICAL EXAM-ADULT Initial Vital Signs Reviewed: Yes - CONSTITUTIONAL General Appearance: appears well, alert, no apparent distress. negative: anxious, combative - EYES Eyes: PERRL/EOMI, pink conjunctivae. negative: photophobia - HEAD, EARS, NOSE, MOUTH & THROAT HENMT: normocephalic/atraumatic, moist mucous membranes. negative: angioedema - NECK Neck: supple - RESPIRATORY Respiratory: chest non-tender, lungs clear, normal breath sounds. negative: w heezing - CARDIOVASCULAR Cardiovascular: normal peripheral pulses, regular rate, rhythm, no edema. negative: bradycardia, tachycardia - GASTROINTESTINAL (ABDOMEN) Abdominal Exam: normal bowel sounds, non tender, soft. negative: rebound - MUSCULOSKELETAL Extremity: normal inspection - SKIN Integumentary: normal color. negative: diaphoresis, jaundice - NEUROLOGIC Neurologic: motor weakness (right side from previous stroke, nothing new), sensory deficit (right side from previous stroke, nothing new) - PSYCHIATRIC Psych/Mental Status: normal mood/affect, oriented x 3. negative: anxious, disheveled - HEART Score HEART Score: History: Moderately Suspicious HEART Score: ECG: Non-Specific Repolarization Disturbance/LBBB/PM HEART Score: Age: > or = 65 Years HEART Score: Risk Factors for Atherosclerotic Disease: 1 or 2 Risk Factors HEART Score: Troponin: < or = Normal Limit Total HEART Score:: 5 Progress - PLAN OF CARE/RESULTS Progress/Plan/Lab Results: Vital Signs - 8 hr 12/14/19 12:56 Temperature 98.5 F Pulse Rate 67 Respiratory Rate 18 Blood Pressure 153/63 O2 Sat by Pulse Oximetry 99 Laboratory Results - last 24 hr 12/14/19 12/14/19 12/14/19 14:10 14:10 14:10 WBC RBC Hgb Hct MCV MCH MCHC RDW Std Deviation Plt Count MPV Neut % (Auto) Lymph % (Auto) [place] % (Auto) Eos % (Auto) Baso % (Auto) Neut # (Auto) Lymph # (Auto) [place] # (Auto) Eos # (Auto) Baso # (Auto) PT INR PTT (Actin FS) Sodium 137 Potassium 4.4 Chloride 100 Carbon Dioxide 28 Anion Gap 9 BUN 11 Creatinine 0.5 Estimated GFR/1.73 m2 > 60 BUN/Creatinine Ratio 22 Glucose 84 Calculated Osmolality 272 Calcium 9.1 Total Bilirubin 0.38 AST 22 ALT 20 Alkaline Phosphatase 94 Troponin T High Sens 19 Mvy-M-Qifcpzexzrx Pept 456 H Total Protein 6.3 Albumin 3.6 Globulin 2.7 Albumin/Globulin Ratio 1.3 12/14/19 12/14/19 12/14/19 14:10 14:10 16:32 WBC 5.25 RBC 4.69 Hgb 14.4 Hct 44.8 MCV 95.5 MCH 30.7 MCHC 32.1 L RDW Std Deviation 14.9 H Plt Count 183 MPV 11.0 H Neut % (Auto) 61.7 Lymph % (Auto) 21.9 [place] % (Auto) 11.8 H Eos % (Auto) 4.0 Baso % (Auto) 0.6 Neut # (Auto) 3.24 Lymph # (Auto) 1.15 L [place] # (Auto) 0.62 H Eos # (Auto) 0.21 Baso # (Auto) 0.03 PT 14.0 INR 1.07 PTT (Actin FS) 32.2 Sodium Potassium Chloride Carbon Dioxide Anion Gap BUN Creatinine Estimated GFR/1.73 m2 BUN/Creatinine Ratio Glucose Calculated Osmolality Calcium Total Bilirubin AST ALT Alkaline Phosphatase Troponin T High Sens 19 Fvx-G-Mmgptcfvpbe Pept Total Protein Albumin Globulin Albumin/Globulin Ratio Orders Category Date Time Status Gandara Cath Insertion ORDERED Care 12/14/19 17:29 Active Nursing- Obtain EKG ONCE Care 12/14/19 13:37 Active CHEST-1 VIEW [RAD] Stat Exams 12/14/19 13:37 Completed CTA [CT ANGIOGRM PULMONARY ARTERIES] [CT] Stat Exams 12/14/19 17:27 Ordered CBC WITH ELECTRONIC DIFF [HEME] Stat Lab 12/14/19 14:10 Completed COMPREHENSIVE METABOLIC PANEL [CHEM] Stat Lab 12/14/19 14:10 Completed PRO B-NATRIURETIC PEPTIDE Stat Lab 12/14/19 14:10 Completed PROTIME WITH INR [COAG] Stat Lab 12/14/19 14:10 Completed PTT [COAG] Stat Lab 12/14/19 14:10 Completed TROPONIN T HIGH SENSITIVITY Stat Lab 02/24/20 14:10 Completed TROPONIN T HIGH SENSITIVITY Stat Lab 12/14/19 16:32 Completed Aspirin Med 12/14/19 14:28 Discontinued 243 mg PO NOW ONE Furosemide [Lasix] Med 12/14/19 17:27 Discontinued 40 mg IV NOW ONE EKG [EKG] Stat Ther 12/14/19 13:17 Draft EKG [EKG] Stat Ther 12/14/19 13:37 Ordered Result Diagrams: 12/14/19 14:10 12/14/19 14:10 - EKG 1 Time of EKG reading by physician:: 13:02 EKG Read and Signed by:: Abner Brock EKG Interpretation (*Must complete 3 of following elements*): Abnormal (possible anterior infarct, age undetermined) Rate: 65 Rhythm: NSR [place]: left QRS: LVH - XRAY 1 XRAY: Bilateral XRAY Study: Chest Impression: See EMR Report (IMPRESSION: Mild cardiomegaly. Electronically signed by Ephraim Meza 12/14/2019 1:56 PM 12/14/19 1475) - CONSULTS/PCP/HOSPITALIST Notification #1 *Consult/PCP/Hospitalist*: Ashley for Hospitalist Time Discussed: 17:34 Consult Disposition: Will see in ED, Admit Departure - Departure Date of Disposition Decision: 12/14/19 Time of Disposition Decision: 17:34 DIAGNOSIS: Hypoxia, CHF (congestive heart failure), HTN (hypertension), Chest pain Disposition: ADMITTED INPATIENT 09 Certified Medical Emergency: Emergent Condition: Fair Referrals and Follow-Ups: Jomar Canela MD [Primary Care Provider] - - Critical Care Note This patient required my direct & personal management of CC.: No Attestation - Physician/ MARIO Attestation Patient care was provided by Advanced Practice Provider:: No The physician spent face to face time with patient:: Yes Advanced Practice Provider documentation review:: Supervising physician onsite and consulted in the evaluation and care of this patient. The physician did have a face to face encounter with the patient. This chart was documented by the indicated scribe, (Neyda Nunez Scribe) and accurately reflects the services I performed and decisions made by me, Abner Brock MD, as attested by the provider's signature.
--- NOTE | 2019-12-14 20:29 | Diag Imaging Result Doc PS360 ---
EXAM: CT ANGIOGRM PULMONARY ARTERIES HISTORY: SOB, hypoxia TECHNIQUE: CT chest with intravenous contrast. Pulmonary arterial protocol with MIP images. COMPARISON: None. FINDINGS: The heart is enlarged and there is a tiny pericardial effusion. No aortic aneurysm or dissection. Normal opacification of the pulmonary arteries and their major branches. Mild pulmonary edema. No enlarged lymph nodes. No consolidation. No bronchiectasis. Tiny infiltrates or atelectasis in the left lower lobe. There is a collapsed lower thoracic vertebra unchanged complaint 09/09/2019. IMPRESSION: 1.No pulmonary emboli 2.Cardiomegaly with pulmonary edema This exam was performed using automated exposure control, adjustment of mA or kV according to patient size, and/or use of iterative reconstruction technique. Electronically signed by Bassam Yee 12/14/2019 8:27 PM
--- NOTE | 2019-12-14 20:45 | HISTORY AND PHYSICAL ---
CHIEF COMPLAINT: Shortness of breath, elevated blood pressure. HISTORY OF PRESENT ILLNESS: Briefly, this is an 84-year-old female. She has a history of stroke and she has cardiac history with PCI. She came in today from home with complaints of shortness of breath. She could not catch her breath. She does not clearly describe orthopnea or paroxysmal nocturnal dyspnea. She does have increasing swelling in her feet. So, in any case, workup in the ER was more consistent with a CHF exacerbation, although her x-ray was just read as cardiomegaly. She has had a cough with yellowish sputum. No fevers, chills, night sweats. She was admitted for congestive heart failure exacerbation. PAST MEDICAL HISTORY: 1. CAD. 2. History of CVA. 3. Hypertension. 4. Depression. 5. Hypothyroidism. 6. Hyperlipidemia. 7. I believe, most likely, atrial fibrillation. PAST SURGICAL HISTORY: 1. She has had the PCI. 2. She has had total abdominal hysterectomy. 3. Kyphoplasty. 4. Breast biopsy. 5. Right foot surgery. 6. Tonsillectomy. 7. Appendectomy. SOCIAL HISTORY: No tobacco or alcohol. She is lives at home with 24 hour nursing care. FAMILY HISTORY: Positive for CAD in mother and father. REVIEW OF SYSTEMS: Otherwise negative times a 10 point review of systems. MEDICATIONS: Medications have not been resolved, but: 1. Coreg 6.25 b.i.d. 2. Cymbalta 20 b.i.d. 3. Esomeprazole 40 daily. 4. Gabapentin 100 t.i.d. 5. Synthroid 50 daily. 6. Atorvastatin 40 daily. 7. Prinivil 5 daily. 8. Ultram p.r.n. 9. Mag-Ox. 10. Zantac. 11. Aspirin. 12. Eliquis. 13. Zofran. PHYSICAL EXAMINATION: VITAL SIGNS: Blood pressure was 153/63, heart rate of 67, respiratory rate of 18, temperature 98.5 degrees. GENERAL: Well developed female in no acute distress. HEAD: Normocephalic, atraumatic. EYES: Pupils equal and round, reactive to light. Extraocular movements were intact. EARS, NOSE, THROAT: She had most moist mucous membranes. Sclerae anicteric. NECK: Supple. CARDIOVASCULAR: Regular rate and rhythm. No murmurs, gallops, or rubs. PULMONARY: Bilateral breath sounds, clear to auscultation. GI: Soft, nontender, and nondistended. Bowel sounds were positive. 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 MUSCULOSKELETAL: 4/5 in her left upper and lower. LABS: Basic was normal. ProBNP was mildly elevated at 456 and has previously been normal. That is barely positive, but she is hypoxic. PROBLEM LIST: 1. Acute hypoxic respiratory failure, which may be congestive heart failure, could be pulmonary embolus, could be pneumonia. I think CTA is a good way to go to kind of figure this out. We will continue diuresis for the time being and follow. 2. Accelerated or uncontrolled or malignant hypertension. We will adjust her medicines. I have placed her on nitroglycerin. She is getting Lasix and will give her labetalol and follow. 3. History of cerebrovascular accident. Continue her aspirin. We will also check serial cardiac enzymes and I think we will repeat an echocardiogram tomorrow to evaluate for any new drop in her cardiac function. cc: Uriel Cancino MD
[2019-12-14] MEDS: NITROGLYCERIN TOP SCH (21:16)
[2019-12-14] MEDS ORDERED: LABETALOL IV PRN (21:42)
[2019-12-15] MEDS: NITROGLYCERIN TOP SCH ×3 (05:17→14:42)
[2019-12-15] MEDS: LASIX IV SCH ×2 (05:52→17:35)
[2019-12-15 07:47] LABS: BASO# 0.04 X1000 (0.0-0.2); BASO% 0.5 % (0.0-0.8); EOS# 0.15 X1000 (0.0-0.7); HEMOGLOBIN 15.3 g/dL (12.0-16.0); LYMPH# 0.89 X1000 (1.2-3.4); LYMPH% 12.1 % (20.5-51.1); MCH 29.9 PG (27-31); MCHC 31.9 g/dL (33-37); MCV 93.8 FL (81-99); MONO# 0.49 X1000 (0.11-0.59); MONO% 6.7 % (1.7-9.3); MPV 10.8 FL (7.4-10.4); NEUT# 5.77 X1000 (1.4-6.5); NEUT% 78.7 % (42.2-75.2); PLT 257 X1000 (130-400); RBC 5.12 XMIL (4.2-5.4); RDW 14.7 % (11.5-14.5); WBC 7.34 X1000 (4.8-10.8)
[2019-12-15 08:20] LABS: AGAP 12; BUN 11 mg/dL (8-22); CALCIUM 9.6 mg/dL (8.8-10.2); CHLORIDE 94 mmol/L (98-107); COSMO 277; CREATININE 0.5 mg/dL (0.5-0.9); ESTIMATED GFR > 60; GLUCOSE 93 mg/dL (70-104); POTASSIUM 3.9 mmol/L (3.5-5.1); SODIUM 139 mmol/L (136-145); TCO2 33 mmol/L (25-35)
[2019-12-15] MEDS ORDERED: ZOFRAN ODT PO PRN (09:14)
[2019-12-15] MEDS: LIORESAL PO SCH ×3 (10:17→22:24)
[2019-12-15] MEDS: CYMBALTA PO SCH ×2 (10:17→22:24)
[2019-12-15] MEDS: PRINIVIL PO SCH (10:17)
[2019-12-15] MEDS: ELIQUIS PO SCH ×2 (10:17→17:34)
[2019-12-15] MEDS: NEURONTIN PO SCH ×3 (10:17→22:25)
[2019-12-15] MEDS ORDERED: COREG PO ONE (14:10)
[2019-12-15] MEDS: ULTRAM PO SCH ×2 (15:23→22:25)
--- NOTE | 2019-12-15 16:17 | PROGRESS NOTE ---
DATE: 12/15/2019 SUBJECTIVE: The patient feels like she is breathing a little bit better. OBJECTIVE: Blood pressure 144/84, heart rate of 116, respiratory rate 12, and temperature 98 degrees at 100% on room air.Cardiovascular: Regular rate and rhythm. Pulmonary: Bilateral breath sounds diminished throughout really, but I could not appreciate any rales. GI: Soft, nontender, and nondistended. Bowel sounds are positive. LABORATORY: White count 7, hemoglobin and hematocrit 15 and 48, and platelets 257,000. Basic was normal. PROBLEM LIST: 1. Acute hypoxia related to at this point CHF. Her CT shows pulmonary edema and cardiomegaly. She has a history of CAD status post PCI. It was negative for PE. We are going to continue diuresis. Echo is pending. Troponins were negative. Her proBNP was mildly elevated at 456, but that is a bare elevation above normal or high limit of normal. Clinically, it feels like she has got CHF more than any other pathology at this point. 2. Hypertension which is not completely controlled. We will continue her medications. She is on Coreg, Lasix, lisinopril and amlodipine. She is on nitroglycerin. I think we can transition her to Imdur and follow her blood pressure. 3. History of cerebrovascular accident. We will continue aspirin and statin. Follow closely. DISPOSITION: Pending her clinical status. cc: Uriel Cancino MD
[2019-12-15] MEDS: COREG PO SCH (17:35)
[2019-12-15] MEDS: NORVASC PO SCH (22:24)
[2019-12-15] MEDS: SYNTHROID PO SCH (22:24)
[2019-12-15] MEDS: COLACE PO SCH (22:25)
--- NOTE | 2019-12-15 23:38 | ECHO REPORT ---
ORDER DATE: 12/15/2019 MEASUREMENTS: Septal thickness 1.0, left ventricular internal diameter in diastole 4.0, posterior wall thickness 1.0, left ventricular internal diameter in systole 2.0, aortic root 3.3, left atrium 2.8. SUMMARY: 1. Technically difficult study due to limited acoustic window quality. 2. Aortic valve is trileaflet and opens normally on 2-dimensional images. Peak gradient across aortic valve is less than 5 mmHg. Mitral and tricuspid valves are without evidence of structural abnormality, while pulmonic valve was not well demonstrated. There is trace mitral regurgitation. Aortic root is normal in size. 3. Normal left ventricular dimensions demonstrated. Estimated left ventricular ejection fraction appears to be at least 70%. No regional wall motion abnormalities evident. Left atrium, right atrium, right ventricle are normal in size with grossly preserved right ventricular systolic function. 4. No pericardial effusion. 5. Appearance of inferior vena cava suggests normal central venous pressure. cc: MD Uriel Sousa MD
[2019-12-16] MEDS: LASIX IV SCH (05:18)
[2019-12-16] MEDS: NEXIUM PO SCH (06:43)
[2019-12-16 08:13] LABS: BASO# 0.03 X1000 (0.0-0.2); BASO% 0.4 % (0.0-0.8); EOS# 0.13 X1000 (0.0-0.7); EOS% 1.7 % (0.0-10.0); HEMATOCRIT 45.1 % (37.0-47.0); HEMOGLOBIN 14.3 g/dL (12.0-16.0); LYMPH# 1.47 X1000 (1.2-3.4); LYMPH% 19.5 % (20.5-51.1); MCHC 31.7 g/dL (33-37); MCV 94.7 FL (81-99); MONO# 0.81 X1000 (0.11-0.59); MONO% 10.7 % (1.7-9.3); MPV 10.9 FL (7.4-10.4); NEUT% 67.7 % (42.2-75.2); PLT 256 X1000 (130-400); RBC 4.76 XMIL (4.2-5.4); RDW 14.7 % (11.5-14.5); WBC 7.54 X1000 (4.8-10.8)
[2019-12-16 08:50] LABS: AGAP 9; BUN 17 mg/dL (8-22); CALCIUM 8.9 mg/dL (8.8-10.2); CHLORIDE 95 mmol/L (98-107); COSMO 282; CREATININE 0.8 mg/dL (0.5-0.9); ESTIMATED GFR > 60; GLUCOSE 110 mg/dL (70-104); POTASSIUM 3.8 mmol/L (3.5-5.1); SODIUM 140 mmol/L (136-145); TCO2 36 mmol/L (25-35)
[2019-12-16] MEDS ORDERED: IMDUR PO SCH (09:00)
--- NOTE | 2019-12-16 10:32 | Diag Imaging Result Doc PS360 ---
CHEST-PORTABLE - 12/16/2019 INDICATION: ie COMPARISON: 12/14/2019 FINDINGS: Stable mild cardiomegaly. No infiltrates or edema. No pneumothorax or pleural effusion. IMPRESSION: Cardiomegaly. Electronically signed by Ephraim Meza 12/16/2019 10:30 AM
[2019-12-16] MEDS: PRINIVIL PO SCH (10:41)
[2019-12-16] MEDS: NEURONTIN PO SCH ×3 (10:41→21:34)
[2019-12-16] MEDS: CENTRUM SILVER PO SCH (10:41)
[2019-12-16] MEDS: ASPIRIN EC PO SCH (10:41)
[2019-12-16] MEDS: LIORESAL PO SCH ×3 (10:42→21:34)
[2019-12-16] MEDS: ULTRAM PO SCH ×3 (10:42→21:34)
[2019-12-16] MEDS: CYMBALTA PO SCH ×2 (10:42→21:33)
[2019-12-16] MEDS: COLACE PO SCH ×2 (10:42→21:33)
[2019-12-16] MEDS: COREG PO SCH ×2 (10:43→18:38)
[2019-12-16] MEDS: ELIQUIS PO SCH ×2 (10:43→18:58)
--- NOTE | 2019-12-16 12:32 | CARDIOLOGY CONSULTATION ---
DATE: 12/16/2019 REASON FOR CONSULTATION: Cardiology was consulted for shortness of breath. HISTORY OF PRESENT ILLNESS: Ms Dana Bowman is an 84-year-old lady who has multiple medical problems, has had coronary artery disease, myocardial infarction, stent placement, has had a stroke in the past as well. Has had a mini stroke about 5 weeks ago. She is at home with home health and exercise capacity is significantly limited. She has noticed increasing swelling in her right leg and some shortness of breath. She also has noticed some increase belching over the last few weeks, and she had left-sided chest discomfort. She came to the emergency room, was admitted. She had a CT scan and a pulmonary arteriogram done which revealed heart failure. She had an echocardiogram done which revealed preserved left ventricular systolic function. Please see detailed echocardiogram report. As far as the patient's symptoms are concerned, there are is no palpitations, no recent fevers or chills. She has had a cough with some mucoid to mucopurulent expectoration recently. Since admission, she feels better. Her pedal edema has improved. REVIEW OF SYSTEMS: A 14-point review of systems was done.Gastrointestinal System: As above. In addition, there is no history of hematemesis or melena. Central Nervous System: Recent CVA 5 weeks back. She has no new symptoms since then. Genitourinary System: There is no dysuria or hematuria. Endocrine System: Stable. PAST MEDICAL AND SURGICAL HISTORY: 1. Myocardial infarction of 03/09/2016, last cardiac catheterization 03/09/2016 with PTCA to the LAD mid and proximal, OM1 proximal, LAD after second diagonal had 30% stenosis. 2. She had a patent circumflex stent. 3. The diagonal branches were small vessel disease, severe ostial, not target for PCI. 4. She has had a stroke right-sided in 2018. 5. She has had a mini stroke about 5 weeks back. 6. Has had disk compression and surgery by Dr. Stein in 2018 at T10 level. 7. History of DVT. 8. Chronic back pain. 9. Hyperlipidemia. 10. Other surgeries include kyphoplasty, total abdominal hysterectomy, breast biopsy, right foot surgery, tonsillectomy, appendectomy. SOCIAL HISTORY: She does not smoke. Does not drink. She lives at home with 24 hour nursing care. HOME MEDICATIONS: Include duloxetine 20, multivitamins, levothyroxine 0.05 mg a day, Coreg 6.25 mg b.i.d., gabapentin 100, baclofen, docusate sodium, amlodipine 5, lisinopril 20, tramadol, enteric-coated aspirin, Eliquis 2.5 mg p.o. b.i.d., omeprazole, Zofran as needed. PHYSICAL EXAMINATION: Vital Signs: On examination, blood pressure 129/55. Neck: Jugular venous pressure was normal. Cardiac: First and second heart sounds were present. Respiratory System: Normal air entry. There are no crepitations or rhonchi. Abdomen: Soft. Extremities: Examination of the extremities revealed mild pedal edema, improved since admission, right more than left. Central Nervous System: The patient was alert, had difficulty in moving her right extremities, and detailed central nervous system examination not performed. DIAGNOSTIC DATA: Sodium 140, potassium 3.8, BUN 17, creatinine 0.8. Troponin T high sensitivities were negative. The proBNP 413. Hematology: WBC 7.54, hemoglobin 14.3, hematocrit 45, platelet count of 256. ASSESSMENT AND PLAN: 1. Ms. Dana Bowman is an 84-year-old lady with known history of myocardial infarction, coronary artery disease, stent placement to circumflex artery and the left anterior descending artery, cerebrovascular accident in 2018, mini stroke again 5 weeks back, history of deep vein thrombosis, back surgery, who is admitted with shortness of breath in addition to increasing pedal edema. She also had complained of having symptoms of belching. She does have gastroesophageal reflux disease and has had left-sided chest discomfort. From a cardiac standpoint, she had an echocardiogram done which revealed ejection fraction of 70%. No significant valvular disease. 2. Given her symptoms, she probably has diastolic heart failure. She has been started on Lasix, and she has significant improvement. We will continue with Lasix 40 by mouth from tomorrow. 3. As far as her chest pains are concerned, we will treat her medically. She is significantly handicapped to having had multiple strokes and recent transient ischemic attack as well. The patient is in agreement. We will discuss this with her son as well. We will increase her Imdur to 60 mg a day. 4. Hypertension and coronary artery disease. She is on a combination of SHERLEY inhibitors, beta- blockers, and Norvasc. I have not made any changes. As far as anticoagulation therapy is concerned, she is on aspirin and Eliquis. I suspect that was for strokes or associated deep vein thrombosis. I have not made any changes at the present time. Thank you for the consult. We will follow hospital course. cc: Jerzy Chandler MD
--- NOTE | 2019-12-16 16:06 | PROGRESS NOTE ---
DATE: 12/16/2019 SUBJECTIVE: The patient has no major complaints. OBJECTIVE: Vital Signs: Blood pressure 127/72, heart rate of 85, respiratory 16, temperature 98.1 degrees, 97% on room air. Cardiovascular: Regular rate and rhythm. Pulmonary: Bilateral breath sounds clear to auscultation. Gastrointestinal: Abdomen soft, nontender, nondistended. Bowel sounds were positive. LABORATORY DATA: White count 7, hemoglobin and hematocrit 14 and 45, platelets 252,000. Basic was normal. PROBLEM LIST: 1. Acute at this point diastolic heart failure. We will continue diuresis. I am switching her to p.o. because she appears to be improving. I appreciate Cardiology's input on her primary diagnosis. Overall, she seems better. 2. Hypertension is also improving in control. We have adjusted her medications. 3. History of cerebrovascular accident. Aware of diagnosis. We will continue to monitor. DISPOSITION: I anticipate discharge tomorrow. cc: Uriel Cancino MD
[2019-12-16] MEDS ORDERED: IMDUR PO ONE (17:00)
[2019-12-16] MEDS ORDERED: NS 250 ML IV ONE ×2 (18:39→21:21)
[2019-12-16] MEDS ORDERED: SOLU-CORTEF IV ONE (21:21)
[2019-12-16] MEDS: SYNTHROID PO SCH (21:33)
[2019-12-16] MEDS: NORVASC PO SCH (21:35)
[2019-12-16] MEDS ORDERED: SODIUM CHLORIDE 0.9% ONE (21:45)
[2019-12-17] MEDS: NEXIUM PO SCH (06:22)
[2019-12-17] MEDS: CYMBALTA PO SCH ×2 (07:53→22:02)
[2019-12-17] MEDS: ULTRAM PO SCH ×3 (07:53→22:02)
[2019-12-17 08:33] LABS: AGAP 12; BUN 27 mg/dL (8-22); CALCIUM 8.8 mg/dL (8.8-10.2); CHLORIDE 95 mmol/L (98-107); COSMO 283; CREATININE 0.8 mg/dL (0.5-0.9); ESTIMATED GFR > 60; GLUCOSE 139 mg/dL (70-104); POTASSIUM 3.6 mmol/L (3.5-5.1); SODIUM 138 mmol/L (136-145); TCO2 31 mmol/L (25-35)
[2019-12-17] MEDS ORDERED: LASIX PO SCH (09:00)
[2019-12-17] MEDS ORDERED: IMDUR PO SCH (09:00)
[2019-12-17] MEDS: CENTRUM SILVER PO SCH (10:05)
[2019-12-17] MEDS: COLACE PO SCH ×2 (10:05→22:02)
[2019-12-17] MEDS: LIORESAL PO SCH ×3 (10:06→22:02)
[2019-12-17] MEDS: ELIQUIS PO SCH ×2 (10:06→17:38)
[2019-12-17] MEDS: NEURONTIN PO SCH ×3 (10:06→22:02)
[2019-12-17] MEDS: ASPIRIN EC PO SCH (10:06)
[2019-12-17] MEDS: COREG PO SCH ×2 (15:05→17:37)
[2019-12-17] MEDS: PRINIVIL PO SCH (15:06)
[2019-12-17] MEDS: NORVASC PO SCH (22:02)
[2019-12-17] MEDS: SYNTHROID PO SCH (22:02)
[2019-12-18] MEDS: NEXIUM PO SCH (06:33)
[2019-12-18] MEDS: ELIQUIS PO SCH ×2 (09:35→23:36)
[2019-12-18] MEDS: CYMBALTA PO SCH ×2 (09:55→23:36)
[2019-12-18] MEDS: NEURONTIN PO SCH ×3 (09:55→23:36)
[2019-12-18] MEDS: COLACE PO SCH ×2 (09:55→23:36)
[2019-12-18] MEDS: CENTRUM SILVER PO SCH (09:55)
[2019-12-18] MEDS: ASPIRIN EC PO SCH (09:55)
[2019-12-18] MEDS: ULTRAM PO SCH ×3 (09:55→23:37)
[2019-12-18] MEDS: LIORESAL PO SCH ×3 (09:56→23:36)
[2019-12-18] MEDS: COREG PO SCH ×3 (12:51→23:36)
[2019-12-18] MEDS: PRINIVIL PO SCH (12:52)
[2019-12-18] MEDS: IMDUR PO SCH (12:53)
[2019-12-18] MEDS ORDERED: NS 1,000 ML IV ONE (16:09)
--- NOTE | 2019-12-18 16:43 | PROGRESS NOTE ---
DATE: 12/18/2019 SUBJECTIVE: Patient has no major complaints. OBJECTIVE: Vital Signs: Blood pressure 108/49, heart rate 68, respiratory rate is 17, temperature 98.2 degrees, 97% on room air. Cardiovascular: Regular rate and rhythm. Pulmonary: Bilateral breath sounds, clear to auscultation. GI: Soft, nontender, nondistended. Bowel sounds are positive. LABORATORY DATA: No new labs today. PROBLEM LIST: 1. Transient hypotension for the last 2 nights, possibly due to over-diuresis or medication effect. Wee are going to put her back on gentle hydration. I have adjusted her medications down including Coreg, lisinopril, Imdur. We stopped her Norvasc and will monitor blood pressure. If it is stable, no more hypotension, she should be able to go home tomorrow. 2. Hypertension. Again, adjusted her medications and we will follow. 3. History of cerebrovascular accident. Continue aspirin. She is at her baseline. DISPOSITION: I anticipate again hopefully discharge tomorrow. Her lactate is a bit elevated but she does not have any signs of sepsis and she does not have any signs of infection at this point, so I am not going to consider this to be sepsis. cc: Uriel Cancino MD
[2019-12-18] MEDS: SYNTHROID PO SCH (23:36)
[2019-12-19 04:59] LABS: AGAP 10; BUN 34 mg/dL (8-22); CALCIUM 8.1 mg/dL (8.8-10.2); CHLORIDE 101 mmol/L (98-107); COSMO 289; CREATININE 0.7 mg/dL (0.5-0.9); ESTIMATED GFR > 60; GLUCOSE 92 mg/dL (70-104); POTASSIUM 3.7 mmol/L (3.5-5.1); SODIUM 141 mmol/L (136-145); TCO2 30 mmol/L (25-35)
[2019-12-19] MEDS: NEXIUM PO SCH (06:15)
[2019-12-19] MEDS: ELIQUIS PO SCH (08:33)
[2019-12-19] MEDS: COLACE PO SCH (08:33)
[2019-12-19] MEDS: ASPIRIN EC PO SCH (08:34)
[2019-12-19] MEDS: CENTRUM SILVER PO SCH (08:34)
[2019-12-19] MEDS: IMDUR PO SCH (08:34)
[2019-12-19] MEDS: CYMBALTA PO SCH (08:34)
[2019-12-19] MEDS: PRINIVIL PO SCH (08:34)
[2019-12-19] MEDS: COREG PO SCH (08:34)
[2019-12-19] MEDS: LIORESAL PO SCH (08:34)
[2019-12-19 08:37] VITALS: BP 110/50
[2019-12-19] MEDS: NEURONTIN PO SCH (10:02)
[2019-12-19] MEDS: ULTRAM PO SCH (10:02)
[2019-12-19] MEDS ORDERED: LACTULOSE PO SCH (11:15)
[2019-12-19] MEDS ORDERED: FLU VACCINE IM ONE (11:49)
--- NOTE | 2019-12-19 14:15 | DISCHARGE SUMMARY ---
ADMISSION DATE: 12/14/2019 DISCHARGE DATE: 12/19/2019 DISCHARGE DIAGNOSES: 1. Acute diastolic heart failure. 2. History of cerebrovascular accident. 3. Uncontrolled hypertension. 4. Transient hypotension associated with diuretics. CONSULTATIONS: Cardiology, Jerzy Chandler MD. PROCEDURES: None. HOSPITAL COURSE: Briefly, this is an 84-year-old female who came in with shortness of breath. She has a history of CVA and CAD, but I do not think she had a known history of congestive heart failure. There was concern over hypoxia, but there was no evidence of hypoxia initially, I think the lowest she got was like 94%. She was diuresed. Her CTA showed cardiomegaly with pulmonary edema. Her echocardiogram did not show significant issues. As far as diastolic dysfunction, her EF was 70%. She had normal wall motion. Normal CV pressure, of course, that is after diuresis, so we diuresed her for a couple days. I got a Cardiology consult because I was not completely sure she did actually have congestive heart failure. Cardiology did feel she most likely had diastolic heart failure. She has had an [place] in 2016 with a catheterization. She does have pedal edema. Her medicines were adjusted. We had to monitor her for a couple of days because she developed hypotension on December 17, I believe, requiring IV fluid bolus because she dropped into the 80s and her pressure came up. We adjusted her medicines slowly, it was 88/51 around 9. We adjusted her medicines, dropped her lisinopril, stopped her Lasix, stopped the Norvasc, decreased her Coreg, decreased her Imdur. She has still had another episode of hypotension with a systolic blood pressure in the 80s the morning prior to discharge, on December 18, but after adjustment her blood pressure stabilized. It is 110/50, heart rate 64. DISCHARGE MEDICATIONS: Multivitamin daily, Colace 100 b.i.d., Cymbalta 20 b.i.d., Nexium 40 daily, gabapentin 100 t.i.d., Synthroid 50 mcg daily, Ultram 50 t.i.d., aspirin 81 daily, Coreg 3.125 b.i.d., Eliquis 2.5 b.i.d., Imdur 30 daily which is new, baclofen 10 t.i.d., lisinopril 10 which is an adjustment, and Zofran. DISCHARGE CONDITION: Stable. FOLLOWUP: She will need to follow up with Dr. Chandler in 2 to [address] Canela in 1 week. She is really nonambulatory, but she has 24-hour care or near 24-hour care with caregivers. REFERRALS: Ref[facility] to Dr[facility]. TIME SPENT FOR DISCHARGE: 32-minute discharge. [facility] was resumed at discharge. cc: Uriel Cancino MD
== END 2019-12-19 15:23 | disposition home health service (06) | DRG 291 ==
LOC: SUPCPDRO → ED 12:26 → 3N 20:53
PROVIDERS: ATTEND Internal Medicine